=== PATIENT | female | born 1940 | race Caucasian/White ===

== ENCOUNTER → 2016-06-15 | Outpatient (CLI) | payer OTHER ==
[~2016-06-15] MED LIST: IPRAT-ALBUT 0.5-3 ML INH; LEVOTHYROXINE75 MCG PO; METOPROLOL TART25 MG PO; SYMBICORT 160-1 INHA INH; VENTOLIN HFA 66.7 GM INH
== END ==
LOC: RAD 15:39
DX: J44.9 Chronic obstructive pulmonary disease, unspecified (principal); R91.8 Other nonspecific abnormal finding of lung field
CPT/HCPCS: 71020